=== PATIENT | male | born 1960 | race Caucasian/White ===

== ENCOUNTER → 2018-04-12 | Outpatient (CLI) | payer BC ==
[~2018-04-12] MED LIST: ERGO500017 PO; LEVO175T36 PO; OMEP40CA6 PO; OXYC5TAB3 PO; SIMV40TA3 PO
== END | disposition home or self-care (01) ==
LOC: STAR 08:56
PROVIDERS: ATTEND Surgery
DX: Z02.9 Encounter for administrative examinations, unspecified (principal)

== ENCOUNTER 2018-04-17 09:13 | Day surgery (SDC) | payer BC ==
[2018-04-12 09:34] VITALS: BP 139/98
[~2018-04-17] VITALS: Ht 195.6 cm; Wt 110.0 kg
[2018-04-17] MEDS ORDERED: LACTATED RINGERS 1,000 ML IV SCH (09:35)
[2018-04-17] MEDS ORDERED: MIDAZOLAM 1 MG/ML, 2ML ONE (09:56)
[2018-04-17] MEDS ORDERED: FENTANYL PF 100 MCG/2ML ONE (09:56)
[2018-04-17] MEDS ORDERED: LIDOCAINE-MPF 1%, 2ML INFIL ONE (10:00)
[2018-04-17] MEDS ORDERED: ONDANSETRON 2MG/ML, 2ML IVPush ONE (10:05)
[2018-04-17] MEDS ORDERED: GABAPENTIN 300 MG CAPSULE PO ONE (10:05)
[2018-04-17] MEDS ORDERED: FAMOTIDINE 20 MG TABLET PO ONE (10:05)
[2018-04-17] MEDS ORDERED: OXYcodone IR 5MG TABLET PO ONE (10:05)
[2018-04-17] MEDS ORDERED: ACETAMINOPHEN 500 MG TABLET PO ONE (10:05)
[2018-04-17] MEDS ORDERED: EPINEPHRINE 1 MG/ML, 1ML ONE (10:07)
[2018-04-17] MEDS ORDERED: BACITRACIN 50,000 UNIT ONE (10:07)
[2018-04-17] MEDS ORDERED: BUPIVACAINE/PF 0.5% ONE (10:07)
[2018-04-17] MEDS ORDERED: GLYCOPYRROLATE 0.2MG/1ML, 5ML ONE (11:33)
[2018-04-17] MEDS ORDERED: ONDANSETRON 2MG/ML, 2ML ONE (11:33)
[2018-04-17] MEDS ORDERED: KETOROLAC 30 MG/1 ML ONE (11:33)
[2018-04-17] MEDS ORDERED: SUCCINYLCHOLINE 20 MG/ML, 10ML ONE (11:33)
[2018-04-17] MEDS ORDERED: PROPOFOL 10 MG/ML, 20ML ONE (11:33)
[2018-04-17] MEDS ORDERED: CEFAZOLIN 1,000 MG ONE (11:33)
[2018-04-17] MEDS ORDERED: NEOSTIGMINE 1 MG/ML, 10ML ONE (11:33)
[2018-04-17] MEDS ORDERED: ROCURONIUM 10 MG/ML,10ML ONE (11:33)
[2018-04-17] MEDS ORDERED: DEXAMETHASONE 4 MG/ML, 1ML ONE (11:33)
[2018-04-17] MEDS ORDERED: MEPERIDINE/PF 25MG/0.5ML IVPush PRN (12:30)
[2018-04-17] MEDS ORDERED: HYDROcodone/APAP 7.5-325MG/15ML UDC PO PRN (12:30)
[2018-04-17] MEDS ORDERED: ALBUTEROL SULFATE 2.5 MG/3 ML NPPB PRN (12:30)
[2018-04-17] MEDS ORDERED: LABETALOL 5MG/ML, 20ML IV PRN (12:30)
[2018-04-17] MEDS ORDERED: EPHEDRINE 50 MG/ML, 1ML IVPush PRN (12:30)
[2018-04-17] MEDS ORDERED: OXYcodone 5 MG/5 ML ORAL.SOL UDC PO PRN (12:30)
[2018-04-17] MEDS ORDERED: ONDANSETRON 2MG/ML, 2ML IV PRN (12:30)
[2018-04-17] MEDS ORDERED: MIDAZOLAM 1 MG/ML, 2ML IV PRN (12:30)
[2018-04-17] MEDS ORDERED: PROMETHAZINE 25 MG/ML, 1ML IV PRN (12:30)
[2018-04-17] MEDS ORDERED: hydrALAzine 20 MG/ML, 1ML IV PRN (12:30)
[2018-04-17] MEDS ORDERED: HYDROmorphone 1 MG/ML, 1ML IV PRN (12:30)
[2018-04-17] MEDS ORDERED: FENTANYL PF 100 MCG/2ML IV PRN (12:30)
[2018-04-17 19:45] VITALS: BP 138/90
== END 2018-04-17 21:00 | disposition home or self-care (01) ==
LOC: OUT 09:13 → 4NOR 19:20 → OUT 21:00
PROVIDERS: ATTEND Surgery
DX: K40.91 Unilateral inguinal hernia, without obstruction or gangrene, recurrent (principal); K40.90 Unilateral inguinal hernia, without obstruction or gangrene, not specified as recurrent; K31.9 Disease of stomach and duodenum, unspecified; E78.00 Pure hypercholesterolemia, unspecified; K22.70 Barrett's esophagus without dysplasia; K21.9 Gastro-esophageal reflux disease without esophagitis; G47.33 Obstructive sleep apnea (adult) (pediatric); E89.0 Postprocedural hypothyroidism; Z85.850 Personal history of malignant neoplasm of thyroid; Z98.890 Other specified postprocedural states; Z79.899 Other long term (current) drug therapy; Z72.89 Other problems related to lifestyle
CPT/HCPCS: 49650; 49651; C1727; C1781; J0171; J0330; J0690; J1100; J1885; J2250; J2405; J2704; J2710; J3010; J3490; J7120

== ENCOUNTER 2019-09-12 22:30 | Emergency (ER) | payer BC ==
[~2019-09-12] VITALS: Ht 195.6 cm; Wt 110.0 kg
[~2019-09-12 22:30] MED LIST changes: +OMEP40CA42 PO; -OMEP40CA6 PO
--- NOTE | 2019-09-12 22:50 | NUR ---
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 HX OF GERD. PT STS HE WAS AT WORK AND HAD INTENSE ABD PAIN, WENT HOME AND PAIN STARTED TO RADIATE TO STERNUM. PT DENIES CARDIAC HX. PT CONNECTED TO ALL MONITORING, NADN, AT BEDSIDE CALL LIGHT IN REACH.
[2019-09-12] MEDS ORDERED: MAALOX/HYOSCYAMINE/LIDOCAINE 45 ML BTL ONE (23:00)
[2019-09-12] MEDS ORDERED: SODIUM CHLORIDE FLUSH 10ML SYR IVF ONE (23:00)
[2019-09-12] MEDS ORDERED: MAALOX/HYOSCYAMINE/LIDOCAINE 45 ML BTL PO ONE (23:00)
[2019-09-12] MEDS ORDERED: MORPHINE SULFATE 4 MG/ML, 1ML IVPush PRN (23:00)
--- NOTE | 2019-09-12 23:01 | NUR ---
PT MEDICATED PER MAR.
[2019-09-12 23:05] LABS: BASOPHILS # (AUTO) 0.02 x10^3/uL (0-0.1); BASOPHILS % (AUTO) 0 % (0-1); EOSINOPHILS # (AUTO) 0.06 x10^3/uL (0-0.4); EOSINOPHILS % (AUTO) 1 % (1-7); LYMPHOCYTES # (AUTO) 1.34 x10^3/uL (1-3.4); LYMPHOCYTES % (AUTO) 16 % (22-44); MD NO; MEAN CORPUSCULAR HEMOGLOBIN 30.6 pg (27.5-34.5); MEAN CORPUSCULAR HGB CONC 33.8 g/dL (33.2-36.2); MEAN CORPUSCULAR VOLUME 90.7 fL (81-97); MEAN PLATELET VOLUME 7.8 fL (7.4-10.4); MONOCYTES # (AUTO) 0.61 x10^3/uL (0.2-0.8); MONOCYTES % (AUTO) 7 % (2-9); NEUTROPHILS % (AUTO) 75 % (42-75); PLATELET COUNT 177 x10^3/uL (130-400); RED BLOOD COUNT 5.51 x10^6/uL (4.38-5.82); RED CELL DISTRIBUTION WIDTH 13.9 % (9.4-14.8)
[2019-09-12 23:17] LABS: ALANINE AMINOTRANSFERASE 34 U/L (12-78); ANION GAP 9 mmol/L (5-15); CHLORIDE 106 mmol/L (98-107); CREATININE 1.29 mg/dL (0.7-1.3)
[2019-09-12 23:22] LABS: ALKALINE PHOSPHATASE 82 U/L (45-117); BILIRUBIN,TOTAL 0.6 mg/dL (0.2-1.0); TOTAL PROTEIN 7.1 g/dL (6.4-8.2); TROPONIN I < 0.015 ng/mL (0.000-0.045)
--- NOTE | 2019-09-12 23:34 | NUR ---
PT STS GI COCKTAIL IMPROVED SYMPTOMS, PAIN IMPROVING. MD TO BE UPDATED
[2019-09-13 00:02] VITALS: BP 137/90
== END 2019-09-13 00:16 | disposition home or self-care (01) ==
LOC: ED 23:18
DX: R10.13 Epigastric pain (principal); K21.9 Gastro-esophageal reflux disease without esophagitis; R07.9 Chest pain, unspecified
CPT/HCPCS: 36415; 71045; 80053; 83690; 84484; 85025; 93005; 99284

== ENCOUNTER 2019-09-13 04:56 | Emergency (ER) | payer BC ==
[~2019-09-13] VITALS: Ht 195.6 cm; Wt 108.0 kg
[2019-09-13] MEDS ORDERED: MAALOX/HYOSCYAMINE/LIDOCAINE 45 ML BTL PO ONE (06:00)
[2019-09-13] MEDS ORDERED: DICYCLOMINE 10 MG/ML, 2ML IM ONE (06:00)
--- NOTE | 2019-09-13 06:00 | NUR ---
Patient states he came in for abd pain last night. He got a GI cocktail which helped him. However when he went home, he vomited once and then the pain came back. Patient denies N/V/D. Denies fevers.
[2019-09-13] MEDS ORDERED: DICYCLOMINE 10 MG/ML, 2ML ONE (06:10)
[2019-09-13] MEDS ORDERED: MAALOX/HYOSCYAMINE/LIDOCAINE 45 ML BTL ONE (06:11)
[2019-09-13 06:12] LABS: MEAN CORPUSCULAR HEMOGLOBIN 30.5 pg (27.5-34.5); MEAN CORPUSCULAR HGB CONC 33.6 g/dL (33.2-36.2); MEAN CORPUSCULAR VOLUME 90.5 fL (81-97); MEAN PLATELET VOLUME 8.2 fL (7.4-10.4); PLATELET COUNT 160 x10^3/uL (130-400); RED BLOOD COUNT 5.63 x10^6/uL (4.38-5.82); RED CELL DISTRIBUTION WIDTH 13.7 % (9.4-14.8)
[2019-09-13 06:28] LABS: ALANINE AMINOTRANSFERASE 35 U/L (12-78); ALBUMIN 4.1 g/dL (3.4-5.0); ANION GAP 7 mmol/L (5-15); CALCIUM 8.9 mg/dL (8.5-10.1); CHLORIDE 106 mmol/L (98-107); CREATININE 1.16 mg/dL (0.7-1.3)
[2019-09-13 06:30] LABS: ALKALINE PHOSPHATASE 76 U/L (45-117); TOTAL PROTEIN 7.2 g/dL (6.4-8.2)
[2019-09-13 06:35] LABS: BASOPHILS % (AUTO) 0 % (0-1); EOSINOPHILS % (AUTO) 0 % (1-7); LYMPHOCYTES # (AUTO) 0.62 x10^3/uL (1-3.4); LYMPHOCYTES % (AUTO) 4 % (22-44); MD SCAN; MONOCYTES % (AUTO) 6 % (2-9); NEUTROPHILS # (AUTO) 13.15 x10^3/uL (1.8-6.8); NEUTROPHILS % (AUTO) 90 % (42-75)
[2019-09-13 06:39] LABS: MICROSCOPIC NOT IND
--- NOTE | 2019-09-13 06:55 | NUR ---
REPORT RECEIEVED FROM PARUL GUAMAN. [facility]
[2019-09-13 07:10] LABS: CULTURE INDICATED? NO
[2019-09-13 07:25] VITALS: BP 124/86
--- NOTE | 2019-09-13 07:25 | NUR ---
DR. MARTÍNEZ IS BEDSIDE.
== END 2019-09-13 07:46 | disposition home or self-care (01) ==
LOC: ED 05:28
DX: K83.9 Disease of biliary tract, unspecified (principal); K76.0 Fatty (change of) liver, not elsewhere classified; R10.13 Epigastric pain; R10.11 Right upper quadrant pain; K21.9 Gastro-esophageal reflux disease without esophagitis; E07.9 Disorder of thyroid, unspecified; R16.0 Hepatomegaly, not elsewhere classified
CPT/HCPCS: 36415; 76700; 80053; 81003; 83690; 85025; 93005; 96372; 99284; J0500

== ENCOUNTER 2019-09-20 07:52 | Inpatient (IN) | payer BC ==
[~2019-09-20] VITALS: Ht 195.6 cm; Wt 103.0 kg
[2019-09-20 08:07] VITALS: BP 124/78
[2019-09-20] MEDS ORDERED: LACTATED RINGERS 1,000 ML IV SCH (08:10)
[2019-09-20] MEDS ORDERED: EPINEPHRINE 1 MG/ML, 1ML ONE (08:12)
[2019-09-20] MEDS ORDERED: BUPIVACAINE/PF 0.5% ONE (08:12)
[2019-09-20] MEDS ORDERED: PLEASE ENTER HEIGHT AND WEIGHT MC SCH (08:30)
[2019-09-20] MEDS ORDERED: FENTANYL PF 250 MCG/5ML ONE (09:44)
[2019-09-20] MEDS ORDERED: MIDAZOLAM 1 MG/ML, 2ML ONE (09:44)
[2019-09-20] MEDS ORDERED: LIDOCAINE 4%, 4 ML SYR/CANN TP ONE (09:46)
[2019-09-20] MEDS ORDERED: LIDOCAINE-MPF 2% ,5ML ONE (09:46)
[2019-09-20] MEDS ORDERED: CEFOTETAN 2 GM ONE (09:46)
[2019-09-20] MEDS ORDERED: PROMETHAZINE 25 MG SUPP PR PRN (10:30)
[2019-09-20] MEDS ORDERED: ONDANSETRON 2MG/ML, 2ML IV PRN (10:30)
[2019-09-20] MEDS ORDERED: LORazepam 2 MG/ML, 1ML IVPush PRN (10:30)
[2019-09-20] MEDS ORDERED: OXYcodone 5 MG/5 ML ORAL.SOL UDC PO PRN (10:30)
[2019-09-20] MEDS ORDERED: HYDROmorphone 2 MG/ML, 1ML IVPush PRN (10:30)
[2019-09-20] MEDS ORDERED: ONDANSETRON ODT 8 MG PO PRN (10:30)
[2019-09-20] MEDS ORDERED: ACETAMINOPHEN 325 MG TABLET PO PRN (10:30)
[2019-09-20] MEDS ORDERED: PROMETHAZINE 25 MG/ML, 1ML IV PRN (10:30)
[2019-09-20] MEDS ORDERED: ROCURONIUM 10MG/ML,5ML ONE ×2 (10:32)
[2019-09-20] MEDS ORDERED: ONDANSETRON 2MG/ML, 2ML ONE (10:32)
[2019-09-20] MEDS ORDERED: SUCCINYLCHOLINE 20 MG/ML, 10ML ONE (10:32)
[2019-09-20] MEDS ORDERED: NEOSTIGMINE 1 MG/ML, 10ML ONE (10:32)
[2019-09-20] MEDS ORDERED: DEXAMETHASONE 4 MG/ML, 1ML ONE (10:32)
[2019-09-20] MEDS ORDERED: CEFAZOLIN 1,000 MG ONE (10:32)
[2019-09-20] MEDS ORDERED: PROPOFOL 10 MG/ML, 20ML ONE (10:32)
[2019-09-20] MEDS ORDERED: GLYCOPYRROLATE 0.2MG/1ML, 5ML ONE (10:32)
[2019-09-20] MEDS ORDERED: FENTANYL PF 100 MCG/2ML ONE ×2 (11:13→12:05)
[2019-09-20] MEDS ORDERED: SUGAMMADEX 200 MG/2 ML IVPush ONE (11:18)
[2019-09-20] MEDS ORDERED: OXYcodone 5 MG/5 ML ORAL.SOL UDC ONE (12:05)
[2019-09-20] MEDS: FENTANYL PF 100 MCG/2ML IV PRN ×2 (12:08→12:13)
[2019-09-20] MEDS: SODIUM CHLORIDE 0.9% 1,000 ML IV SCH ×2 (13:57→21:35)
[2019-09-20] MEDS ORDERED: ONDANSETRON 2MG/ML, 2ML IVPush PRN (14:00)
[2019-09-20] MEDS ORDERED: MORPHINE SULFATE 4 MG/ML, 1ML IV PRN (14:00)
[2019-09-20 14:03] VITALS: BP 104/67
[2019-09-20] MEDS: PIPERACILLIN/TAZO/PMX 3.375GM 50 ML IV SCH ×2 (14:15→19:35)
[2019-09-20 19:58] VITALS: BP 104/74
[2019-09-21 00:18] VITALS: BP 104/76
[2019-09-21] MEDS: PIPERACILLIN/TAZO/PMX 3.375GM 50 ML IV SCH ×4 (01:51→21:23)
[2019-09-21 05:05] VITALS: BP 115/77
[2019-09-21 05:21] LABS: ALBUMIN 1.9 g/dL (3.4-5.0); ANION GAP 10 mmol/L (5-15); CHLORIDE 99 mmol/L (98-107)
[2019-09-21 05:25] LABS: ALANINE AMINOTRANSFERASE 40 U/L (12-78); ALKALINE PHOSPHATASE 101 U/L (45-117); BILIRUBIN, DIRECT 0.7 mg/dL (0.1-0.2); BILIRUBIN,TOTAL 1.2 mg/dL (0.2-1.0); CREATININE 1.07 mg/dL (0.7-1.3); TOTAL PROTEIN 5.6 g/dL (6.4-8.2)
[2019-09-21 05:26] LABS: BASOPHILS % (AUTO) 0 % (0-1); EOSINOPHILS # (AUTO) 0.14 x10^3/uL (0-0.4); EOSINOPHILS % (AUTO) 1 % (1-7); LYMPHOCYTES # (AUTO) 0.84 x10^3/uL (1-3.4); LYMPHOCYTES % (AUTO) 6 % (22-44); MD NO; MEAN CORPUSCULAR HEMOGLOBIN 30.3 pg (27.5-34.5); MEAN CORPUSCULAR HGB CONC 33.3 g/dL (33.2-36.2); MEAN CORPUSCULAR VOLUME 91.2 fL (81-97); MEAN PLATELET VOLUME 7.8 fL (7.4-10.4); MONOCYTES # (AUTO) 1.24 x10^3/uL (0.2-0.8); MONOCYTES % (AUTO) 9 % (2-9); NEUTROPHILS # (AUTO) 12.13 x10^3/uL (1.8-6.8); NEUTROPHILS % (AUTO) 85 % (42-75); PLATELET COUNT 262 x10^3/uL (130-400); RED BLOOD COUNT 4.87 x10^6/uL (4.38-5.82); RED CELL DISTRIBUTION WIDTH 14.6 % (9.4-14.8)
[2019-09-21] MEDS: SODIUM CHLORIDE 0.9% 1,000 ML IV SCH ×2 (06:29→14:17)
[2019-09-21] MEDS: LEVOTHYROXINE 75 MCG TABLET PO SCH (06:30)
[2019-09-21] MEDS: OMEPRAZOLE 20 MG CAPSULE.DR PO SCH (06:30)
[2019-09-21 07:06] VITALS: BP 107/73
[2019-09-21] MEDS: ENOXAPARIN 30 MG/0.3 ML SQ SCH ×2 (11:40→23:37)
[2019-09-21 12:48] VITALS: BP 107/69
[2019-09-21 19:38] VITALS: BP_SYST 93; BP_SYST 95; BP_DIAS 59; BP_DIAS 63
[2019-09-22 01:21] VITALS: BP 110/72
[2019-09-22] MEDS: SODIUM CHLORIDE 0.9% 1,000 ML IV SCH (02:55)
[2019-09-22] MEDS: PIPERACILLIN/TAZO/PMX 3.375GM 50 ML IV SCH ×4 (02:56→20:27)
[2019-09-22 05:27] LABS: BASOPHILS # (AUTO) 0.03 x10^3/uL (0-0.1); BASOPHILS % (AUTO) 0 % (0-1); EOSINOPHILS # (AUTO) 0.19 x10^3/uL (0-0.4); EOSINOPHILS % (AUTO) 2 % (1-7); LYMPHOCYTES # (AUTO) 0.93 x10^3/uL (1-3.4); LYMPHOCYTES % (AUTO) 9 % (22-44); MD NO; MEAN CORPUSCULAR HEMOGLOBIN 30.3 pg (27.5-34.5); MEAN CORPUSCULAR HGB CONC 33.4 g/dL (33.2-36.2); MEAN CORPUSCULAR VOLUME 90.7 fL (81-97); MEAN PLATELET VOLUME 7.5 fL (7.4-10.4); MONOCYTES # (AUTO) 1.07 x10^3/uL (0.2-0.8); MONOCYTES % (AUTO) 10 % (2-9); NEUTROPHILS # (AUTO) 8.17 x10^3/uL (1.8-6.8); NEUTROPHILS % (AUTO) 79 % (42-75); PLATELET COUNT 286 x10^3/uL (130-400); RED BLOOD COUNT 4.37 x10^6/uL (4.38-5.82); RED CELL DISTRIBUTION WIDTH 14.9 % (9.4-14.8)
[2019-09-22 05:36] LABS: ALBUMIN 1.8 g/dL (3.4-5.0); ANION GAP 6 mmol/L (5-15); CALCIUM 7.3 mg/dL (8.5-10.1); CHLORIDE 100 mmol/L (98-107)
[2019-09-22 05:39] LABS: ALANINE AMINOTRANSFERASE 28 U/L (12-78); ALKALINE PHOSPHATASE 79 U/L (45-117); CREATININE 0.98 mg/dL (0.7-1.3); TOTAL PROTEIN 5.4 g/dL (6.4-8.2)
[2019-09-22] MEDS: LEVOTHYROXINE 75 MCG TABLET PO SCH (06:38)
[2019-09-22] MEDS: OMEPRAZOLE 20 MG CAPSULE.DR PO SCH (06:39)
[2019-09-22 08:00] VITALS: BP 109/70
[2019-09-22] MEDS: SODIUM CHLORIDE FLUSH 3ML SYRINGE IVF SCH ×2 (09:00→20:27)
[2019-09-22] MEDS ORDERED: BISACODYL 10 MG SUPP PR ONE (09:00)
[2019-09-22] MEDS ORDERED: BISACODYL 10 MG SUPP PR PRN (09:00)
[2019-09-22] MEDS ORDERED: MORPHINE SULFATE 4 MG/ML, 1ML IV PRN (09:00)
[2019-09-22] MEDS: ENOXAPARIN 30 MG/0.3 ML SQ SCH ×2 (10:50→22:22)
[2019-09-22] MEDS: OXYcodone/APAP 5/325MG TABLET PO PRN ×3 (10:50→22:22)
[2019-09-22 14:20] VITALS: BP 106/69
[2019-09-22 18:45] VITALS: BP 127/76
[2019-09-23 01:29] VITALS: BP 113/63
[2019-09-23] MEDS: PIPERACILLIN/TAZO/PMX 3.375GM 50 ML IV SCH ×2 (01:32→07:38)
[2019-09-23] MEDS: OMEPRAZOLE 20 MG CAPSULE.DR PO SCH (05:56)
[2019-09-23] MEDS: LEVOTHYROXINE 75 MCG TABLET PO SCH (05:57)
[2019-09-23 06:41] VITALS: BP 118/78
[2019-09-23] MEDS: SODIUM CHLORIDE FLUSH 3ML SYRINGE IVF SCH (07:39)
[2019-09-23] MEDS: OXYcodone/APAP 5/325MG TABLET PO PRN (08:06)
[2019-09-23] MEDS ORDERED: OXYC-302 PO (09:34)
[2019-09-23] MEDS ORDERED: AMOX1TAB64 PO (09:35)
== END 2019-09-23 10:00 | disposition home or self-care (01) | DRG 414 ==
LOC: OUT 07:52 → 4NE 13:14 → OUT 13:15 → 4NE 13:15 → DCLOUNGE 09-23 09:54
PROVIDERS: ADMIT Surgery; ATTEND Surgery
PROC: 0FJ44ZZ Inspection of Gallbladder, Percutaneous Endoscopic Approach (ICD-10-PCS; 2019-09-20)
PROC: 0FT40ZZ Resection of Gallbladder, Open Approach (ICD-10-PCS; principal; 2019-09-20 10:00)
DX: K81.0 Acute cholecystitis (principal); K75.0 Abscess of liver; K21.9 Gastro-esophageal reflux disease without esophagitis; E78.5 Hyperlipidemia, unspecified; E03.9 Hypothyroidism, unspecified; K82.A1 Gangrene of gallbladder in cholecystitis; Z53.31 Laparoscopic surgical procedure converted to open procedure
CPT/HCPCS: 36415; J3490; S0020; 80053; 82248; 83690; 85025; 88304; C1729; G0378; J0171; J0690; J1100; J1650; J2250; J2270; J2405; J2543; J2704; J2710; J3010; J0330; J7030

== ENCOUNTER → 2020-09-23 | Outpatient (CLI) | payer BC ==
[~2020-09-23] MED LIST changes: +AMOX1TAB64 PO; +OXYC-302 PO; +SIMV40TA20 PO; -SIMV40TA3 PO
== END | disposition home or self-care (01) ==
LOC: CVU 08:32
PROVIDERS: ATTEND Internal Medicine Cardiovascular Disease
DX: R00.2 Palpitations (principal)
CPT/HCPCS: 93306; 93356

== ENCOUNTER → 2020-10-09 | Outpatient (CLI) | payer BC ==
[~2020-10-09] MED LIST changes: -OXYC-302 PO; +OXYC1TAB14 PO; -OXYC5TAB3 PO; +OXYC5TAB98 PO
== END | disposition home or self-care (01) ==
LOC: CVU 07:34
PROVIDERS: ATTEND Registered Nurse
DX: M79.604 Pain in right leg (principal); E78.5 Hyperlipidemia, unspecified
CPT/HCPCS: 93922

== ENCOUNTER → 2021-02-01 | Outpatient (CLI) | payer BC | END | disposition home or self-care (01) | LOC: CVU 07:29 | PROVIDERS: ATTEND Registered Nurse | DX: I65.21 Occlusion and stenosis of right carotid artery (principal); R42 Dizziness and giddiness | CPT/HCPCS: 93880 ==